=== PATIENT | female | born 1960 | race Caucasian/White ===

== ENCOUNTER → 2016-07-02 | Outpatient (CLI) | payer BC ==
[~2016-07-02] MED LIST: Iopamidol 755 MG/ML 500 ML Multipack Bottle IVPUSH STA
--- NOTE | 2016-07-02 16:17 | CT ---
CT of the abdomen and pelvis without contrast. HISTORY: Pain TECHNIQUE: Axial CT images were obtained of the abdomen and pelvis without contrast. Coronal and sag ittal reconstructions obtained. FINDINGS: The lung bases are clear, no pleural effusion. The liver, spleen, and pancreas appear unremarkable. There is a dystrophic calcification adjacent to the right adrenal gland. Cholecystectomy. There is no bulky retroperitoneal lymphadenopathy. No abd ominal ascites. There are no calcifications noted within the kidneys or along the courses of the ureters bilaterally . The kidneys enhance and function symmetrically without evidence of obstructive uropathy. The large and small bowel are normal in caliber without evidence of obstruction. There is no bulky p elvic lymphadenopathy. No free fluid. No free air. The urinary bladder is decompressed. Degenerative changes are noted within the lower lumbar spine. IMPRESSION: 1. No acute findings within the abdomen or pelvis. 2. Cholecystectomy, appendectomy, and hysterectomy..
== END ==
LOC: MW.DI 10:56
PROVIDERS: ATTEND Family Medicine
DX: R10.9 Unspecified abdominal pain (principal); Z90.49 Acquired absence of other specified parts of digestive tract; Z90.89 Acquired absence of other organs; Z90.710 Acquired absence of both cervix and uterus
CPT/HCPCS: 74178; Q9967

== ENCOUNTER 2017-07-11 09:43 | Emergency (ER) | payer BC ==
[2017-07-11] MEDS ORDERED: Aspirin 81 MG Tab.Chew PO ONE (09:48)
--- NOTE | 2017-07-11 10:03 | EDM.PDOC ---
ED HPI GENERAL MEDICAL PROBLEM - General Chief Complaint: Chest Pain Stated Complaint: CHEST HEAVINESS Time Seen by Provider: 07/11/17 09:55 Source of Information: Reports: Patient History Limitations: Reports: No Limitations - History of Present Illness INITIAL COMMENTS - FREE TEXT/NARRATIVE: History of present illness: []Patient comes in with heaviness in her chest that has been present since July 08 when she had an episode of severe 10/10 chest pain lasted approximately 15 minutes. She was working alone today and started getting extremely lightheaded and dizzy. This scared her and she came to ER for evaluation. She has not had any recurrent episodes of chest pain but has been feeling heaviness. Pressure but did not take her blood pressure meds this morning. Patient does have history of anxiety Review of systems: As per history of present illness and below otherwise all systems reviewed and negative. Past medical history: As per history of present illness and as reviewed below otherwise noncontributory. Surgical history: As per history of present illness and as reviewed below otherwise noncontributory. Social history: No reported history of drug or alcohol abuse. Family history: As per history of present illness and as reviewed below otherwise noncontributory. Physical exam: General: Well developed, well nourished in NAD HEENT: Atraumatic, normocephalic, pupils reactive, negative for conjunctival pallor or scleral icterus, mucous membranes moist, throat clear, neck supple, nontender, trachea midline. Lungs: Clear to auscultation, breath sounds equal bilaterally, chest nontender. Heart: S1S2, regular, negative for clicks, rubs, or JVD. Abdomen: Soft, nondistended, nontender. Negative for masses or hepatosplenomegaly. Negative for costovertebral tenderness. Pelvis: Stable nontender. Genitourinary: Deferred. Rectal: Deferred. Extremities: Atraumatic, negative for cords or calf pain. Neurovascular unremarkable. Neuro: Awake, alert, oriented. Cranial nerves II through XII unremarkable. Cerebellum unremarkable. Motor and sensory unremarkable throughout. Exam nonfocal. Diagnostics: []CBC normal, chemistries normal, troponin negative, d-dimer negative, chest x- ray normal Therapeutics: []Aspirin, nitroglycerin, Lopressor given with relief of symptoms and improvement of blood pressure. Impression: []Uncontrolled hypertension causing chest discomfort, anxiety Plan: []Patient has an appointment with Dr. Bowman in 4 days she's encouraged to keep this appointment for further workup of heart disease. She is to take a baby aspirin a day and continue her blood pressure medicines regularly. Her to get a blood pressure machine so that she can check this. Definitive disposition and diagnosis as appropriate pending reevaluation and review of above. chest Pain Score (Numeric/FACES): 3 - Related Data Allergies Allergy/AdvReac Type Severity Reaction Status Date / Time No Known Allergies Allergy Verified 08/17/13 14:46 ED ROS GENERAL - Review of Systems Review Of Systems: See Below (See history of present illness) ED EXAM, GENERAL - Physical Exam Exam: See Below (See history of present illness) Course - Vital Signs Last Recorded V/S: Last Vital Signs Temp 98.5 F 07/11/17 09:50 Pulse 58 L 07/11/17 10:42 Resp 18 07/11/17 10:42 BP 120/80 07/11/17 10:42 Pulse Ox 99 07/11/17 10:42 - Orders/Labs/Meds Orders: Active Orders 24 hr Category Date Time Status Cardiac Monitoring [RC] . DIRECTED Care 07/11/17 09:48 Active EKG Documentation Completion [RC] STAT Care 07/11/17 09:48 Active Oxygen Therapy [RC] ASDIRECTED Care 07/11/17 09:48 Active Chest 1V Frontal [CR] Stat Exams 07/11/17 09:48 Taken UA W/MICROSCOPIC [URIN] Stat Lab 07/11/17 09:48 Ordered Labs: Laboratory Tests 07/11/17 07/11/17 07/11/17 Range/Units 10:00 10:00 10:00 WBC 9.01 (4.0-11.0) K/uL RBC 4.41 (4.30-5.90) M/uL Hgb 14.7 (12.0-16.0) g/dL Hct 41.5 (36.0-46.0) % MCV 94.1 (80.0-98.0) fL MCH 33.3 H (27.0-32.0) pg MCHC 35.4 (31.0-37.0) g/dL RDW Std Deviation 40.4 (28.0-62.0) fl RDW Coeff of Bart 12 (11.0-15.0) % Plt Count 227 (150-400) K/uL MPV 8.90 (7.40-12.00) fL Neut % (Auto) 69.0 (48.0-80.0) % Lymph % (Auto) 21.9 (16.0-40.0) % [place] % (Auto) 7.2 (0.0-15.0) % Eos % (Auto) 1.6 (0.0-7.0) % Baso % (Auto) 0.3 (0.0-1.5) % Neut # (Auto) 6.2 H (1.4-5.7) K/uL Lymph # (Auto) 2.0 (0.6-2.4) K/uL [place] # (Auto) 0.7 (0.0-0.8) K/uL Eos # (Auto) 0.1 (0.0-0.7) K/uL Baso # (Auto) 0.0 (0.0-0.1) K/uL Nucleated RBC % 0.0 /100WBC Nucleated RBCs # 0 K/uL INR 0.98 D-Dimer, Quantitative < 0.19 (0.0-0.52) mg/LFEU Sodium 140 (136-145) mmol/L Potassium 3.9 (3.5-5.1) mmol/L Chloride 104 (98-107) mmol/L Carbon Dioxide 27.0 (21.0-32.0) mmol/L BUN 16 (7.0-18.0) mg/dL Creatinine 0.7 (0.6-1.0) mg/dL Est Cr Clr Drug Dosing 81.01 mL/min Estimated GFR (MDRD) > 60.0 ml/min Glucose 101 (74-106) mg/dL Calcium 1.2 L (8.5-10.1) mg/dL Total Bilirubin 0.3 (0.2-1.0) mg/dL AST 15 (15-37) IU/L ALT 34 (14-63) IU/L Alkaline Phosphatase 40 L (46-116) U/L Troponin I < 0.050 (0.000-0.056) ng/mL Total Protein 6.9 (6.4-8.2) g/dL Albumin 4.0 (3.4-5.0) g/dL Globulin 2.9 (2.0-3.5) g/dL Albumin/Globulin Ratio 1.4 (1.3-2.8) Amylase 40 (25-115) U/L Lipase 114 (73-393) U/L Meds: Medications Discontinued Medications Generic Name Dose Route Start Last Admin Trade Name Freq PRN Reason Stop Dose Admin Aspirin 324 mg 07/11/17 09:48 07/11/17 10:03 Aspirin PO 07/11/17 09:49 324 mg ONETIME ONE Administration Metoprolol Tartrate 5 mg 07/11/17 10:15 07/11/17 11:06 Lopressor IVPUSH 07/11/17 10:26 Not Given Q5M [place] Nitroglycerin 0.4 mg 07/11/17 09:48 07/11/17 10:04 Nitrostat SL 07/11/17 09:49 Not Given ONETIME ONE Nitroglycerin 0.4 mg 07/11/17 10:03 07/11/17 10:19 Nitrostat SL 0.4 mg Q5M PRN Administration Chest Pain Departure - Departure Time of Disposition: 11:11 Disposition: Home, Self-Care 01 Condition: Good Clinical Impression: Uncontrolled hypertension Forms: ED Department Discharge - My Orders Last 24 Hours: My Active Orders 07/11/17 09:48 Cardiac Monitoring [RC] . DIRECTED EKG Documentation Completion [RC] STAT Oxygen Therapy [RC] ASDIRECTED Chest 1V Frontal [CR] Stat UA W/MICROSCOPIC [URIN] Stat - Assessment/Plan Last 24 Hours: My Active Orders 07/11/17 09:48 Cardiac Monitoring [RC] . DIRECTED EKG Documentation Completion [RC] STAT Oxygen Therapy [RC] ASDIRECTED Chest 1V Frontal [CR] Stat UA W/MICROSCOPIC [URIN] Stat
[2017-07-11] MEDS: Nitroglycerin 0.4 MG Tab.SL SL PRN ×3 (10:04→10:19)
[2017-07-11] MEDS: Nitroglycerin 0.4 MG Tab.SL SL ONE ×2 (10:04)
[2017-07-11 10:34] LABS: CHLORIDE,CL 104 mmol/L (98-107); SODIUM,NA 140 mmol/L (136-145)
[2017-07-11] MEDS: Metoprolol Tartrate 5 MG/5 ML SDV IVPUSH SCH (11:06)
--- NOTE | 2017-07-11 15:03 | CR ---
EXAM DATE: 07/11/17 PATIENT'S AGE: 57 Patient: GERTRUDE ACEVEDO Facility: [place], [place] Site . Site : 1960 Study: XRay Chest [id number]/[id number] 10:42:59 AM Ordering Physician: Mihai Dc Final Report: INDICATION: Chest Pain, SOB COMPARISON: June, Single AP view Findings: The lungs are clear. Pulmonary vascularity, mediastinum and cardiac silhouette are within normal limits. No effusions and no pneumothorax. Osseous structures appear unremarkable. Cervical fusion hardware noted, unchanged. Impression: No evidence of acute cardiopulmonary disease. Dictated by: Clarence Grijalva MD @ 07/11/2017 11:01:24 (Electronic Signature) Report Signed by Proxy. MAGDI
== END 2017-07-11 11:30 | disposition home or self-care (01) ==
LOC: MW.ED 09:43
DX: I10 Essential (primary) hypertension (principal); F41.9 Anxiety disorder, unspecified
CPT/HCPCS: 36415; 71045; 80053; 82150; 83690; 84484; 85025; 85379; 85610; 93005; 99285; A9270; 99284